=== PATIENT | male | born 1950 | race Caucasian/White ===

== ENCOUNTER → 2018-08-18 | Outpatient (CLI) | payer MEDICARE, OTHER ==
[~2018-08-18] MED LIST: ALEVE220 MG PO; ASPIR-LOW81 MG PO; FISH OIL CONC1000 MG PO; IBUPROFEN200 MG PO; MVI PO; NAPROSYN 2250 MG/TAB PO; NEXIUM 40MG40 MG PO; PROBIOTICA100 MILLIO PO; RANITIDINE HYD150 MG PO; THERAPEUTIC VIT1 CAP PO; TYLENOL 325MG325 MG PO; VITAMIN C500 MG PO; ZINC50 M2 PO; ZYRTEC10 MG PO
== END ==
LOC: MHCPAIN 15:15
DX: G89.29 Other chronic pain (principal); M54.12 Radiculopathy, cervical region; M47.812 Spondylosis without myelopathy or radiculopathy, cervical region
CPT/HCPCS: G0463